=== PATIENT | female | born 1970 | race Caucasian/White ===

== ENCOUNTER → 2020-06-01 | Outpatient (CLI) | payer OTHER ==
[~2020-06-01] MED LIST: DDAVP0.1 MG PO; IRON 100 PLUS1 EACH PO; METOCLOPRAMIDE10 MG PO; PERCOCET 5-3251 EACH PO; ZANTAC300 MG PO
== END | disposition home or self-care (01) ==
LOC: LAB 17:10
PROVIDERS: ATTEND Surgery
DX: D50.8 Other iron deficiency anemias (principal); I10 Essential (primary) hypertension; R74.02 Elevation of levels of lactic acid dehydrogenase [LDH]; K76.89 Other specified diseases of liver; D68.8 Other specified coagulation defects; D68.0 Von Willebrand disease; R79.89 Other specified abnormal findings of blood chemistry; D50.0 Iron deficiency anemia secondary to blood loss (chronic); N93.8 Other specified abnormal uterine and vaginal bleeding; K58.8 Other irritable bowel syndrome; K80.10 Calculus of gallbladder with chronic cholecystitis without obstruction

== ENCOUNTER 2020-06-02 09:13 | Outpatient (CLI) | payer OTHER | END 2020-06-02 09:24 | disposition home or self-care (01) | LOC: MAMO-SONO 09:13 | PROVIDERS: ATTEND Internal Medicine Hematology & Oncology | DX: Z12.31 Encounter for screening mammogram for malignant neoplasm of breast (principal); N64.59 Other signs and symptoms in breast; D68.0 Von Willebrand disease; D50.0 Iron deficiency anemia secondary to blood loss (chronic); N93.8 Other specified abnormal uterine and vaginal bleeding; K58.8 Other irritable bowel syndrome; K80.10 Calculus of gallbladder with chronic cholecystitis without obstruction ==